=== PATIENT | female | born 1945 | race Caucasian/White ===

== ENCOUNTER 2017-06-19 11:09 | Emergency (ER) | payer MEDICARE, BC ==
[2017-06-19] MEDS ORDERED: Aspirin 325 mg EC PO ONE (11:40)
[2017-06-19] MEDS ORDERED: Aspirin 81mg Chewable Tab ONE (11:43)
[2017-06-19 11:56] LABS: % EOSINOPHILS 1.3 % (0.0-5.0); % LYMPHOCYTES 14.8 % (20.0-50.0); % MONOCYTES 7.4 % (2.0-10.0); % NEUTROPHILS 75.5 % (40.0-80.0); BASOPHILE ABSOLUTE 0.1 Th/cumm (0-0.2); EOSINOPHILE ABSOLUTE 0.1 Th/cmm (0.1-0.4); HEMATOCRIT 42.3 % (41.0-60); HEMOGLOBIN 13.9 gm/dL (12-16); LYMPHOCYTE ABSOLUTE 1.2 Th/cmm (1.5-3.0); MEAN CORPUSCULAR HEMOGLOBIN 29.5 pg (27.0-31.0); MEAN CORPUSCULAR HGB CONC 32.8 pg (28.0-36.0); MONOCYTE ABSOLUTE 0.6 Th/cmm (0.3-1.0); PLATELET COUNT 434 Th/cmm (150-400); RED CELL DISTRIBUTION WIDTH 13.2 % (11.5-20.0)
[2017-06-19 12:18] LABS: INR 0.98 (0.5-1.4); PROTHROMBIN TIME (TEST) 10.2 SECONDS (9.5-11.5)
[2017-06-19 12:20] LABS: ALB/GLOB RATIO 1.5 (1.0-1.8); ALBUMIN 4.1 gm/dL (3.7-5.3); ALKALINE PHOSPHATASE 74 U/L (34-104); ANION GAP 8.5 (7.0-16.0); BILIRUBIN,TOTAL 0.7 mg/dL (0.3-1.0); BUN - UREA NITROGEN 19 mg/dL (7-25); CALCIUM SERUM 9.2 mg/dL (8.6-10.3); CARBON DIOXIDE 23.5 mEq/L (21.0-31.0); CHLORIDE 108 mEq/L (98-107); CHOLESTEROL 141 mg/dL (<200); CREATININE - SERUM 0.7 mg/dL (0.6-1.2); CREATININE KINASE 62 U/L (30-223); GFR AFRICAN-AMERICAN > 60.0 ml/min (>90); GFR NON AFRICAN-AMERICAN > 60.0 ml/min; GLUCOSE 138 mg/dL (70-105); HDL -HIGH DENSITY LIPOPROTEIN 43 mg/dL (23-92); SGOT 13 U/L (13-39); SGPT/ALT 17 U/L (7-52); SODIUM SERUM 136 mEq/L (136-145); TOTAL PROTEIN,SERUM 6.8 gm/dL (6.0-8.3); TRIGLYCERIDES 93 mg/dL (<150)
--- NOTE | 2017-06-19 12:31 | ED Physician Chart ---
ED Chief Complaint/HPI - Patient Information Date Seen:: 06/19/17 Time Seen:: 11:25 Chief Complaint:: Jaw Pain History of Present Illness:: onset x one day of intermittent jaw pain with C/P radiating to the neck and jaw ; pt denies trauma, H/As, SOB, Abd. Pain, cough, A/N/V/D/C, fever, chills, or urinary s/s Allergies:: Allergies Allergy/AdvReac Type Severity Reaction Status Date / Time Penicillins [PCN] Allergy Verified 06/19/17 11:28 Vitals:: Vital Signs - 8 hr 06/19/17 06/19/17 11:28 12:19 Temp 98 F HR 63 62 RR 16 18 BP 141/83 146/64 O2 Sat % 97 98 Historian:: Patient Review:: Nurse's Note Reviewed ED Review of Systems - Review of Systems General/Constitutional: No fever, No chills, No weight loss, No weakness, No diaphoresis, No edema, No loss of appetite Skin: No skin lesions, No rash, No bruising Head: Headache, No light-headedness Eyes: No loss of vision, No pain, No diplopia ENT: No earache, No nasal drainage, No sore throat, No tinnitus Neck: Neck pain, No swelling, No thyromegaly, No stiffness, No mass noted Cardio Vascular: Chest pain, No palpitations, No PND, No orthopnea, No edema Pulmonary: SOB, No cough, No sputum, No wheezing GI: No nausea, No vomiting, No diarrhea, No pain, No melena, No hematochezia, No constipation, No hematemesis G/U: No dysuria, No frequency, No hematuria, No nacturia General Warehouse Associate: No vaginal discharge, No abnormal vaginal bleed, No contraction Musculoskeletal: No bone or joint pain, No back pain, No muscle pain Endocrine: No polyuria, No polydipsia Psychiatric: No prior psych history, No depression, No anxiety, No suicidal ideation, No homicidal ideation, No auditory hallucination, No visual hallucination Hematopoietic: No bruising, No lymphadenopathy Allergic/Immuno: No urticaria, No angioedema Neurological: No syncope, No focal symptoms, No weakness, No paresthesia, No headache, No seizure, No dizziness, No confusion, No vertigo ED Past Medical History - Past Medical History Obtainable: Yes Past Medical History: HTN, CAD, Dyslipidemia Family History: Heart disease, HTN Social History: Non Smoker, No Alcohol, No Drug Use, Surgical History: CABG Psychiatricy History: None Medication: Reviewed Family Medical History - Family Member Grandmother Hx Family Hypertension: Yes ED Physical Exam - Physical Examination General/Constitutional: Awake, Well-developed, well-nourished, Alert, No distress, GCS 15, Non-toxic appearing, Ambulatory Head: Atraumatic Eyes: Lids, conjuctiva normal, PERRL, EOMI Skin: Nl inspection, No rash, No skin lesions, No ecchymosis, Well hydrated, No lymphadenopathy ENMT: External ears, nose nl, TM canals nl, Nasal exam nl, Lips, teeth, gums nl , Oropharynx nl, Tonsils nl Neck: Nontender, Full ROM w/o pain, No JVD, No nuchal rigidity, No bruit, No mass, No stridor Other Neck comments:: supple; no meningeal signs; no cervical tenderness; no bruits Respiratory: Nl effort/Exclusion, Clear to Auscultation, No Wheeze/Rhonchi/Rales Cardio Vascular: RRR, No murmur, gallop, rubs, NL S1 S2, Carotid/Femoral/Distal pulses equal bilaterally GI: No tenderness/rebounding/guarding, No organomegaly, No hernia, Normal BS's, Nondistended, No mass/bruits, No McBurney tenderness Other GI comments:: no pulsatile masses; good BS : No CVA tenderness Extremities: No tenderness or effusion, Full ROM, normal strength in all extremities, No edema, Normal digits & nails Neuro/Psych: Alert/oriented, DTR's symmetric, Normal sensory exam, Normal motor strength, Judgement/insight normal, Mood normal, Normal gait, No focal deficits Misc: Normal back, No paraspinal tenderness ED Labs/Radiology/EKG Results - Lab Results Results: Laboratory Tests 06/19/17 06/19/17 11:39 11:50 WBC 8.0 RBC 4.70 Hgb 13.9 Hct 42.3 MCV 90.0 MCH 29.5 MCHC Differential 32.8 RDW 13.2 Plt Count 434 H MPV 7.0 Neutrophils % 75.5 Lymphocytes % 14.8 L Monocytes % 7.4 Eosinophils % 1.3 Basophils % 1.0 Sodium 136 Potassium 4.0 Chloride 108 H Carbon Dioxide 23.5 Anion Gap 8.5 BUN 19 Creatinine 0.7 Est GFR ( Amer) > 60.0 Est GFR (Non-Af Amer) > 60.0 BUN/Creatinine Ratio 27.1 Glucose 138 H Calcium 9.2 Total Bilirubin 0.7 AST 13 ALT 17 Alkaline Phosphatase 74 Creatine Kinase 62 Total Protein 6.8 Albumin 4.1 Globulin 2.7 Albumin/Globulin Ratio 1.5 Triglycerides 93 Cholesterol 141 LDL Cholesterol Direct 99 HDL Cholesterol 43 Comments:: unremarkable - Radiology Results Comments:: NAD - EKG Interpretations EKG Time:: 11:54 Rate & Rhythm: 60; NSR Comments:: LBBB; non-specific st-t changes ED Septic Shock - . Is Septic Shock (SBP<90, OR Lactate>4 mmol\L) present?: No - <6hrs of presentation: Vital Signs: Vital Signs - 8 hr 06/19/17 06/19/17 11:28 12:19 Temp 98 F HR 63 62 RR 16 18 BP 141/83 146/64 O2 Sat % 97 98 ED Reassessment (Disposition) - Reassessment Reassessment:: pt deferred admission and chose to sign out AMA; pt is asymptomatic upon discharge Reassessment Condition:: Improved - Diagnosis Diagnosis:: Dx: Jaw Pain-resolved; Angina Pectoris; CAHD; S/P: CABG Surgery; - Aftercare/Follow up Instructions Aftercare/Follow-Up Instructions:: Counseled pt regarding lab results/diagnosis & need follow up, Refer to Discharge Instructions, Counseled pt & family regarding lab results/diagnosis & need follow up - Patient Disposition Discharge/Transfer:: Against Medical Advice Condition at Disposition:: Stable, Improved (RTER prn if existing s/s reoccur and/or get worse and/or any other new s/s occur; X-Rays Instructions; ACIs given for all above Dx; Refer to Drug Coordinator/Cloth Laminating Supervisor [id number]; F/U with PMD today or prn; RTER prn if concerned) ED Discharge Plan - Patient Disposition Admit/Discharge/Transfer: AGAINST MEDICAL ADVICE Instructions: Discharge Against Medical Advice
--- NOTE | 2017-06-19 12:50 | Diagnostic Imaging Report ---
CHEST X-RAY: AP view INDICATION: pain COMPARISON: None FINDINGS: Mild chronic changes are noted. Left basal subsegmental atelectasis versus scarring is noted. There is no focal consolidation or pleural effusions The heart is at the upper limits of normal and is accentuated by patient suboptimal lung volumes. Degenerative changes of the spine are noted. IMPRESSION: Left basal subsegmental atelectasis versus scarring. No focal consolidation identified.
== END 2017-06-19 13:10 | disposition left against medical advice (07) ==
LOC: ER 11:09
DX: I25.119 Atherosclerotic heart disease of native coronary artery with unspecified angina pectoris (principal); I10 Essential (primary) hypertension; E78.5 Hyperlipidemia, unspecified; Z95.1 Presence of aortocoronary bypass graft
CPT/HCPCS: 36415-UA; 71045-TC; 80053-TC; 80061-TC; 82550-TC; 83880-TC; 84484-TC; 85025-TC; 85610-TC; 93005; 94760; Z7610